=== PATIENT | male | born 1975 | race Caucasian/White ===

== ENCOUNTER → 2016-11-05 | Day surgery (SDC) | payer BC ==
[~2016-11-05] MED LIST: ATROPINE SULFATE 0.1 MG/ML 5ML SYR IV PRN; ATROPINE SULFATE 1MG/2.5ML SYR ONE; CEFAZOLIN 2000 MG/60 ML D5W IV SCH; DEXAMETHASONE SOD INJ 4 MG/ML VIAL IV PRN; DEXAMETHASONE SOD INJ 4 MG/ML VIAL ONE; DiphenhydrAMINE HCL 50 MG/ML VIAL ONE; EpHEDrine SULFATE INJ 50 MG/ML AMP IV PRN; EpINEphrine INJ 1MG/ML AMP 1 MG/ML AMP ONE; FENTANYL CITRATE INJ 50 MCG/1 ML 2 ML VIAL IV PRN; FENTANYL CITRATE INJ 50 MCG/1 ML 2 ML VIAL ONE; HYDR-5688 PO; HYDROCODONE/ACETAMOPHEN 5/325MG TAB PO PRN; KETOROLAC TROMETHAMINE 30 MG/ML VIAL IV. PRN; KETOROLAC TROMETHAMINE 30 MG/ML VIAL ONE; LABETALOL HCL IV 5 MG/ML 20ML IV PRN; LACTATED RINGER'S 1000ML 1,000 ML IV SCH; LIDOCAINE HCL 2% 2 ML VIAL (20MG/ML) ONE; METOCLOPRAMIDE HCL INJ 5 MG/ML 2 ML VIAL IV PRN; METOCLOPRAMIDE HCL INJ 5 MG/ML 2 ML VIAL ONE; MIDAZOLAM HCL 1 MG/ML 2ML VIAL ONE; MoRPHine SULFATE 10 MG/ML CARP/VIAL IV PRN; ONDANSETRON INJ 2 MG/ML 2 ML VIAL IV PRN; ONDANSETRON INJ 2 MG/ML 2 ML VIAL ONE; PHENYLEPHRINE 100MCG/ML 5ML SYR IV PRN; PROPOFOL IV EMULSION 10 MG/ML 20 ML VIAL IV ONE; ROPIVACAINE 0.5% 5 MG/ML 30 ML VIAL ONE; SODIUM CHLORIDE 0.9% 1000ML 1,000 ML IV SCH
--- NOTE | 2016-11-05 08:03 | History & Physical Bridge - [place] ---
H&P Re-Evaluation Bridge Note: I have examined the patient, reviewed the History & Physical and in the interval since the performance of the History & Physical I have noted the following changes of clinical significance: No changes noted
--- NOTE | 2016-11-05 08:55 | Discharge Instructions-SurgCtr ---
Discharge Instructions Date of Service Nov 05, 2016. Visit Reason for Visit: Left Knee Acute Medial Meniscal Tear, Pain Discharge Discharge Diagnosis / Problem: SAME ABOVE Discharge Goals Goal(s): Decrease discomfort, Improve function Activity Recommendations Activity Limitations: as noted below Lifting Limitations: gradually increase as tolerated Exercise/Sports Limitations: gradually increase as tolerated Shower/Bathe: tomorrow Anesthesia . Post Anesthesia Instructions: If you have had General Anesthesia or IV Sedation: * Do not drive today. * Resume driving when surgeon permits. * Do not make important decisions or sign legal documents today. * Call surgeon for: 1. Temperature elevations greater than 101 degrees F. 2. Uncontrollable pain. 3. Excessive bleeding. 4. Persistent nausea and vomiting. 5. Medication intolerance (nausea, vomiting or rash). * For nausea and vomiting use only clear liquids such as: tea, soda, bouillon until nausea subsides, then gradually increase diet as tolerated. * If you have any concerns or questions, call your surgeon's office. If physician is unavailable and it is an emergency, call 911 or go to the nearest emergency room. . Instructions / Follow-Up Instructions / Follow-Up MEDICATIONS: * Resume previous medications unless instructed otherwise by your surgeon. * Always take pain medication on a full stomach or with food to avoid upset stomach. * Do not drink alcohol or drive while taking narcotics. * Ibuprofen or Tylenol may be taken if narcotic not needed. SPECIAL CARE INSTRUCTIONS: __ None _X_ Keep extremity elevated and iced x 48 hours; apply ice 20-30 minutes 8-10 times/day. May remove at night. __ Crutches __ May discard when able __ Brace/Post-op shoe __ 24 hrs/day __ Remove at night _X_ Dressing __ Maintain until seen in office, may shower with plastic over site _X_ Remove dressings in 24-48 hours and then may shower _X_ Cover incisions with band-aids after showering __ Do not remove steri-strips Call physician if chills or temperature rises above 102 degrees or pain unrelieved by prescribed pain medications. Office [phone] Diet Recommendations Home Diet: no limitations Fluid Restriction: None Procedures Procedures Performed: Left Knee Arthroscopy, Partial Medial and Lateral Meniscectomies, Chondroplasty Pending Studies Studies pending at discharge: no Work Instructions Return To Work: after follow-up Medical Emergencies . Who to Call and When: Medical Emergencies: If at any time you feel your situation is an emergency, please call 911 immediately. . Non-Emergent Contact Non-Emergency issues call your: Primary Care Provider Call Non-Emergent contact if: you have a fever, temperature is above 101 . . "Provider Documentation" section prepared by Alfonzo Liang. .
[2016-11-05 09:53] VITALS: BP 123/81; PULSE 61; TEMP 36.3; O2SAT 97
--- NOTE | 2016-11-05 09:55 | Anesthesia Progress Nt - [facility] ---
Anesthesia Post Op Note Date & Time Nov 05, 2016 at 09:55 Vital Signs Pain Intensity: 2 Vital Signs Past 12 Hours Date Time Temp Pulse Resp B/P (MAP) Pulse Ox O2 Delivery O2 Flow Rate FiO2 11/05/16 09:29 36.0 58 16 145/96 (112) 96 Room Air 11/05/16 09:27 64 2 11/05/16 09:27 64 2 96 11/05/16 09:25 134/80 11/05/16 09:22 70 9 97 11/05/16 09:22 69 9 11/05/16 09:21 114/75 11/05/16 09:20 36.4 81 20 114/75 97 Room Air 11/05/16 09:18 65 15 96 11/05/16 09:18 66 15 11/05/16 09:16 118/76 11/05/16 09:13 67 4 11/05/16 09:13 66 4 97 11/05/16 09:11 133/88 11/05/16 09:08 73 17 100 11/05/16 09:08 78 17 11/05/16 09:06 125/97 11/05/16 09:03 64 6 100 11/05/16 09:03 65 6 11/05/16 09:01 131/91 11/05/16 08:58 75 13 99 11/05/16 08:58 75 13 11/05/16 08:56 133/87 11/05/16 08:53 86 7 11/05/16 08:53 85 7 100 11/05/16 08:51 128/94 11/05/16 08:48 84 13 11/05/16 08:48 86 13 100 11/05/16 08:46 135/87 11/05/16 08:44 124/90 11/05/16 08:43 92 11/05/16 08:43 36.2 93 12 127/90 98 Mask 10 11/05/16 08:43 100 98 11/05/16 07:05 36.7 67 16 129/80 (96) 93 Room Air Notes Mental Status: alert / awake / arousable, participated in evaluation Pt Amnestic to Procedure: Yes Nausea / Vomiting: adequately controlled Pain: adequately controlled Airway Patency, RR, SpO2: stable & adequate BP & HR: stable & adequate Hydration State: stable & adequate Anesthetic Complications: no major complications apparent
--- NOTE | 2016-11-05 15:38 | [facility] Post Operative Brief Note ---
Immediate Operative Summary Operative Date Nov 05, 2016. Pre-Operative Diagnosis Left Knee Acute Medial Meniscus Tear, Pain Post-Operative Diagnosis same Procedure(s) Performed Left Knee Arthroscopy, Partial Medial and Lateral Meniscectomies, Chondroplasty Surgeon Dr. Reji Goins Beet Topper Surgeon(s) Jeferson Liang PA-C Estimated Blood Loss 5cc Findings as above Specimens none Complication(s) None Disposition Recovery Room / PACU
--- NOTE | 2016-11-10 14:31 | OPERATIVE REPORT ---
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 POSTOPERATIVE DIAGNOSIS: Same. PROCEDURE: Left knee diagnostic arthroscopy with chondroplasty, partial medial and lateral meniscectomy. SURGEON: Dr. Raul Goins. ANESTHESIA ATTENDING: Jeferson Liang PA-C, whose assistance was necessary for positioning of the knee and helping with instrumentation. ANESTHESIA: General. COMPLICATIONS: None. CONDITION: Stable to PACU. INDICATIONS: Marko is a pleasant 41-year-old male who presented to my office with complaints of left knee pain. MRI and clinical examination were diagnostic for partial medial and lateral meniscal tears. After failing conservative treatment, the elected to undergo arthroscopy. On November 05, 2016, he arrived at [facility] for the above procedure. He was seen in the preoperative holding area and the operative extremity was identified and signed. He was given a preoperative antibiotic, taken back to the operating room and laid on the table in the supine position and put under general anesthesia. The left knee was then prepped and draped in sterile fashion. Time-out was done. The patient and operative extremity was properly identified. A scope was introduced in the lateral prepatellar portal. Diagnostic arthroscopy showed no loose bodies in the suprapatellar pouch. There was some grade 2 chondral changes on the undersurface of the patella. The patella tracked in the center of the trochlea. The scope was brought into the medial compartment. There was grade 2 and grade 3 chondral changes throughout the distal medial and femoral condyle. A medial prepatellar portal was made under direct visualization. A shaver was used to do a chondroplasty of the loose part of the fragments. A probe was then used to probe the posterior meniscus and there was a flipped horizontal tear underneath the posterior meniscus. A shaver was used to remove the unstable portions of the meniscus and complete a medial meniscectomy. The root was probed and intact. The scope was brought into the trochlea. The ACL was intact. The scope was then brought into the lateral compartment. There was some fraying and minor tearing of the root of the lateral meniscus. A shaver was used to remove the unstable portions of meniscus back to stable margins. Multiple pictures were taken. The scope was then placed in the medial parapatellar portal. Repeat diagnostic arthroscopy showed no additional pathology. A mild chrondroplasty was done on the undersurface of the patella. Arthroscopic instruments were removed from the shoulder. Portal sites were closed with 3-0 nylon. The knee was then injected with 30 cc of Ropivicaine and Toradol. He was then placed in a soft compressive dressing and taken to the postanesthesia care unit in stable condition. He tolerated the procedure well.
--- NOTE | 2016-11-10 15:53 | OPERATIVE REPORT ---
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 POSTOPERATIVE DIAGNOSIS: Same. PROCEDURE: Left knee diagnostic arthroscopy with chondroplasty, partial medial and lateral meniscectomy. SURGEON: Dr. Raul Goins. LEAD DESIGNER: Jeferson Liang PA-C. whose assistance was necessary for positioning of the knee and helping with instrumentation. ANESTHESIA: General. COMPLICATIONS: None. CONDITION: Stable to PACU. INDICATIONS: Marko is a pleasant 41-year-old male who presented to my office with complaints of left knee pain. MRI and clinical examination were diagnostic for partial medial and lateral meniscal tears. After failing conservative treatment he elected to undergo arthroscopy. On November 05, 2016 he arrived at [facility] for the above procedure. He was seen in the preoperative holding area and the operative extremity was identified and signed. He was given a preoperative antiobiotic, taken to the operating room and laid on the table in supine position and put under general anesthesia. The left knee was then prepped and draped in sterile fashion. Time out was done and the patient and operative extremity was properly identified. A scope was introduced in the lateral peripatellar portal. Diagnostic arthroscopy showed no loose bodies in the suprapatellar pouch. There were some grade 2 chondral changes on the undersurface of the patella. The patella tracked in the center of the trochlea. The scope was brought into the medial compartment. There was grade 2 and grade 3 chondral changes throughout the distal and medial femoral condyle. A medial parapatellar portal was made under direct visualization. A shaver was used to do a chondroplasty of the loose cartilage fragments. A probe was then used to probe the posterior meniscus and there was a flipped horizontal tear underneath the posterior meniscus. A shaver was used to remove the unstable portions of the meniscus and complete a medial meniscectomy. The root was probed and intact. The scope was brought into the trochlea. The ACL was intact. The scope was then brought in the lateral compartment. There was some fraying and minor tearing of the root of the lateral meniscus. A shave was used to remove the unstable portions of the meniscus back to stable margins. Multiple pictures were taken. The scope was then placed in the medial parapatellar portion. Repeat diagnostic arthroscopy showed no additional pathology. A mild chondroplasty was done on the undersurface of the patella. Arthroscopic instruments were removed from the shoulder. Portal sites were closed with 3-0 Nylon. The knee was then injected with 30 cc of ropivacaine and Toradol. He was then placed in a soft compressive dressing and taken to the postanesthesia care unit in stable condition. He tolerated the procedure well.
== END | disposition home or self-care (01) ==
LOC: X.SURG 06:46
PROVIDERS: ATTEND Orthopaedic Surgery
DX: S83.282A Other tear of lateral meniscus, current injury, left knee, initial encounter (principal); S83.242A Other tear of medial meniscus, current injury, left knee, initial encounter; X58.XXXA Exposure to other specified factors, initial encounter; M94.262 Chondromalacia, left knee

== ENCOUNTER → 2017-12-23 | Day surgery (SDC) | payer BC ==
[2017-11-17 13:21] VITALS: Ht 182.9 cm; Wt 118.2 kg
[~2017-12-23] VITALS: Ht 182.9 cm; Wt 118.2 kg
[~2017-12-23] MED LIST changes: -ATROPINE SULFATE 1MG/2.5ML SYR ONE; -CEFAZOLIN 2000 MG/60 ML D5W IV SCH; +CEFAZOLIN 2000MG IV PUSH 15 ML IV SCH; +CHECK SCOPOLAMINE PATCH PLACEMENT SCH; -DEXAMETHASONE SOD INJ 4 MG/ML VIAL IV PRN; -DiphenhydrAMINE HCL 50 MG/ML VIAL ONE; -HYDR-5688 PO; -HYDROCODONE/ACETAMOPHEN 5/325MG TAB PO PRN; +KETO10TA PO; -LABETALOL HCL IV 5 MG/ML 20ML IV PRN; -METOCLOPRAMIDE HCL INJ 5 MG/ML 2 ML VIAL IV PRN; -METOCLOPRAMIDE HCL INJ 5 MG/ML 2 ML VIAL ONE; +MULTTAB58 PO; -MoRPHine SULFATE 10 MG/ML CARP/VIAL IV PRN; +OXYC-57 PO; +OXYCODONE/ACETAMINOPHEN 5-325 TAB PO PRN; -PHENYLEPHRINE 100MCG/ML 5ML SYR IV PRN; +PROMETHAZINE HCL INJ 12.5 MG in SODIUM CHLORIDE 0.9% 50ML 50 ML IV PRN; -PROPOFOL IV EMULSION 10 MG/ML 20 ML VIAL IV ONE; +PROPOFOL IV EMULSION 10 MG/ML 20 ML VIAL ONE; +SCOPOLAMINE 1.5 MG TDSY TD ONE; +SCOPOLAMINE 1.5 MG TDSY TD SCH
--- NOTE | 2017-12-23 07:43 | [facility] Post Operative Brief Note ---
Immediate Operative Summary Operative Date Dec 23, 2017. Pre-Operative Diagnosis Medial meniscus tear with chondromalacia and bakers cyst Post-Operative Diagnosis Medial meniscus tear with chondromalacia and bakers cyst Procedure(s) Performed Left Knee Arthroscopy With Partial Medial Meniscectomy, Chondroplasty, Extensive Debridement Surgeon Dr. Raul Goins Contracts Administrator Surgeon(s) Alfonzo Liang PA-C Estimated Blood Loss 5 ml Findings Consistent with Post-Op Diagnosis Specimens None Anesthesia Type General
--- NOTE | 2017-12-23 07:45 | Discharge Instructions-SurgCtr ---
Discharge Instructions Date of Service Dec 23, 2017. Visit Reason for Visit: Left Knee Joint Osteoarthritis, Pain Discharge Discharge Diagnosis / Problem: SAME ABOVE Discharge Goals Goal(s): Decrease discomfort, Improve function Activity Recommendations Activity Limitations: as noted below Lifting Limitations: gradually increase as tolerated Exercise/Sports Limitations: gradually increase as tolerated Shower/Bathe: tomorrow Anesthesia . Post Anesthesia Instructions: If you have had General Anesthesia or IV Sedation: * Do not drive today. * Resume driving when surgeon permits. * Do not make important decisions or sign legal documents today. * Call surgeon for: 1. Temperature elevations greater than 101 degrees F. 2. Uncontrollable pain. 3. Excessive bleeding. 4. Persistent nausea and vomiting. 5. Medication intolerance (nausea, vomiting or rash). * For nausea and vomiting use only clear liquids such as: tea, soda, bouillon until nausea subsides, then gradually increase diet as tolerated. * If you have any concerns or questions, call your surgeon's office. If physician is unavailable and it is an emergency, call 911 or go to the nearest emergency room. . Instructions / Follow-Up Instructions / Follow-Up MEDICATIONS: * Resume previous medications unless instructed otherwise by your surgeon. * Always take pain medication on a full stomach or with food to avoid upset stomach. * Do not drink alcohol or drive while taking narcotics. * Ibuprofen or Tylenol may be taken if narcotic not needed. SPECIAL CARE INSTRUCTIONS: __ None _X_ Keep extremity elevated and iced x 48 hours; apply ice 20-30 minutes 8-10 times/day. May remove at night. _X_ Crutches _X_ May discard when able __ Brace/Post-op shoe __ 24 hrs/day __ Remove at night _X_ Dressing __ Maintain until seen in office, may shower with plastic over site _X_ Remove dressings in 24-48 hours and then may shower _X_ Cover incisions with band-aids after showering __ Do not remove steri-strips Call physician if chills or temperature rises above 102 degrees or pain unrelieved by prescribed pain medications. Office [phone] Diet Recommendations Home Diet: no limitations Fluid Restriction: None Procedures Procedures Performed: Left Knee Arthroscopy With Partial Medial Meniscectomy, Chondroplasty, Extensive Debridement Pending Studies Studies pending at discharge: no Work Instructions Return To Work: after follow-up Medical Emergencies . Who to Call and When: Medical Emergencies: If at any time you feel your situation is an emergency, please call 911 immediately. . Non-Emergent Contact Non-Emergency issues call your: Surgeon Call Non-Emergent contact if: your pain is not controlled, wound has increased drainage, wound has increased redness . . "Provider Documentation" section prepared by Alfonzo Liang. .
--- NOTE | 2017-12-23 08:16 | Anesthesia Progress Nt - [facility] ---
Anesthesia Post Op Note Date & Time Dec 23, 2017 at 08:16 Vital Signs Pain Intensity: 2 Vital Signs Past 12 Hours Date Time Temp Pulse Resp B/P (MAP) Pulse Ox O2 Delivery O2 Flow Rate FiO2 12/23/17 08:14 Room Air 12/23/17 07:45 36.4 106 16 109/69 95 Diffusion Mask 8 12/23/17 06:22 36.6 76 16 157/89 (111) 94 Room Air Notes Mental Status: alert / awake / arousable, participated in evaluation Pt Amnestic to Procedure: Yes Nausea / Vomiting: adequately controlled Pain: adequately controlled Airway Patency, RR, SpO2: stable & adequate BP & HR: stable & adequate Hydration State: stable & adequate Anesthetic Complications: no major complications apparent
[2017-12-23 08:46] VITALS: BP 139/95; PULSE 69; O2SAT 96
--- NOTE | 2017-12-23 09:30 | OPERATIVE REPORT ---
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 PROCEDURES: Left knee diagnostic arthroscopy with extensive debridement including release of Bello cyst with chondroplasty and partial medial meniscectomy. SURGEON: Dr. Raul Goins. FOREST PATHOLOGY ASSOCIATE PROFESSOR: Alfonzo Liang PA-C, whose assistance was necessary for retraction and closure. ANESTHESIA: General. COMPLICATIONS: None. CONDITION: Stable to PACU. INDICATIONS: Marko is a pleasant 42-year-old male who I did a left knee scope on a year ago. He did very well initially in about 6 months into it. He reinjured his knee. He said he felt the same as it did preoperatively. A repeat MRI did show a displaced medial meniscus tear and large Bello cyst. It also showed some advanced arthritis. After failing conservative treatment, he elected to undergo arthroscopy. DESCRIPTION OF PROCEDURE: On 12/23/2017, he arrived at [facility] for the above procedure. He was seen in the preoperative holding area and the operative extremity was identified and signed. He was given a preoperative antibiotic, taken back to the operating room, laid on the table in supine position and put under general anesthesia. The left knee was then prepped and draped in sterile fashion. Time-out was done and the patient's operative extremity was properly identified. A scope was introduced in the lateral parapatellar portal. Diagnostic arthroscopy showed no loose bodies in the suprapatellar pouch. There was some grade 3 chondral damage on the undersurface of the patella and within the trochlea. There was a lot of flaking of the cartilage as well. The scope was then brought into the medial compartment. There were grade 3 chondral changes throughout the distal medial femoral condyle and a lot of flaking of the cartilage there as well. A medial parapatellar portal was made under direct visualization. A probe was used to probe the medial meniscus. There was an undersurface horizontal flap tear of the mid body of the meniscus. It seemed flipped under itself and into the gutter. A shaver was used to remove the unstable portion of meniscus. Multiple pictures were taken. A shaver was also used to complete a chondroplasty of the distal medial femoral condyle. The scope was then brought into the trochlea. ACL and PCL were intact. The scope was brought into the lateral compartment and there was no meniscus or cartilage damage laterally. The knee was then brought into full extension and a shaver was used to complete a chondroplasty of the patellofemoral joint. The scope was then placed in the medial parapatellar portal. The scope was placed into the posterior aspect of the knee and switched to a 70-degree scope. A spinal needle was used to find the appropriate spot and a shaver was introduced in the posterior medial aspect of the knee. The posterior medial capsule was opened up and the Bello cyst was decompressed. Multiple pictures were taken. A final diagnostic arthroscopy showed no additional pathology. Arthroscopic instruments were removed from the knee. Portal sites were closed with 3-0 nylon. He was then placed in a soft compressive dressing, extubated, transferred to a litter and taken to the postanesthesia care unit in stable condition. He tolerated the procedure well. I attest to the content of the Intraoperative Record and any orders documented therein. Any exception s are noted below.
== END | disposition home or self-care (01) ==
LOC: X.SURG 06:11
PROVIDERS: ATTEND Orthopaedic Surgery
DX: S83.242A Other tear of medial meniscus, current injury, left knee, initial encounter (principal); M94.262 Chondromalacia, left knee; M71.22 Synovial cyst of popliteal space [Baker], left knee; X58.XXXA Exposure to other specified factors, initial encounter; E66.9 Obesity, unspecified; Z68.35 Body mass index [BMI] 35.0-35.9, adult